=== PATIENT | female | born 1960 | race Caucasian/White ===

== ENCOUNTER 2023-04-08 17:31 | Emergency (ER) | payer OTHER ==
[~2023-04-08] VITALS: Ht 152.4 cm; Wt 74.8 kg
[2023-04-08 17:40] VITALS: BP_SYST 181; PULSE 111; RESP 26; TEMP 97.5; O2SAT 99
[2023-04-08] MEDS ORDERED: IBUPROFEN 600 MG TABLET PO ONE (18:45)
--- NOTE | 2023-04-08 19:22 | NUR ---
FIRST CONTACT WITH PT. ASSESSMENT COMPLETED. AWAITING EVAL AND ORDERS.
[2023-04-08 21:10] VITALS: BP_SYST 124; PULSE 88; RESP 18; TEMP 98.3; O2SAT 97
--- NOTE | 2023-04-08 21:30 | NUR ---
PT RESTING QUIETLY AWAITING DISPO.
--- NOTE | 2023-04-08 23:00 | NUR ---
MD AT BEDSIDE TO DISCUSS FINDINGS AND DISCHARGE PLANS.
--- NOTE | 2023-04-08 23:35 | NUR ---
Patient given written and verbal discharge instructions and verbalizes understanding. ER MD VILLAFUERTE discussed with patient the results and treatment provided. Patient in stable condition. ID arm band removed. IV catheter removed intact and dressing applied, no active bleeding. Rx of given. Patient educated on pain management and to follow up with PMD. Pain Scale . Opportunity for questions provided and answered. Medication side effect fact sheet provided.
== END 2023-04-09 00:13 | disposition home or self-care (01) ==
LOC: SED 17:31
DX: S62.667A Nondisplaced fracture of distal phalanx of left little finger, initial encounter for closed fracture (principal); S80.12XA Contusion of left lower leg, initial encounter; S80.11XA Contusion of right lower leg, initial encounter; I10 Essential (primary) hypertension; Z79.899 Other long term (current) drug therapy; V48.4XXA Person boarding or alighting a car injured in noncollision transport accident, initial encounter; Y93.89 Activity, other specified; Y92.89 Other specified places as the place of occurrence of the external cause; Y99.8 Other external cause status
CPT/HCPCS: 73090; 73140-TC; 73590-TC; 99284